=== PATIENT | male | born 2000 | race African-American/Black ===

== ENCOUNTER 2023-09-23 22:21 | Emergency (ER) | payer SELFPAY ==
--- NOTE | ~2023-09-23 | XR_ITS ---
EXAMINATION: XR chest 2V DATE: 09/24/2023 08:04 INDICATION: Palpitations. TECHNIQUE: Frontal and lateral views of the chest were obtained. COMPARISON: None. FINDINGS: There is no pneumonia, pleural effusion, or pneumothorax. The heart size is normal. IMPRESSION: 1. No acute cardiopulmonary disease. Reviewed, dictated and finalized at location E. [facility]
--- NOTE | 2023-09-23 22:26 | ECG_ITS ---
Measurements Intervals [place] Rate: 103 P: 44 WI: 187 QRS: 69 QRSD: 99 T: 19 QT: 326 QTc: 429 Interpretive Statements SINUS TACHYCARDIA ABNORMAL RHYTHM ECG NO PREVIOUS ECG AVAILABLE FOR COMPARISON Electronically Signed On 09-24-2023 13:19:01 PROJECT HIRE by Slim Elliott M.D.
[2023-09-24] VITALS (14 sets, daily range): BP systolic 107–160; BP diastolic 53–84; PULSE 57–110; RESP 13–25; TEMP 36.6; O2SAT 96–100
--- NOTE | 2023-09-24 06:23 | PC.NURSE ---
Once patient was back in room he denies any chest pain or chest palpitations.
[2023-09-24 08:11] LABS: Basophils Percent Auto 0.3 % (0.2-1.2); Eosinophils Absolute Auto 0.1 K/mm3 (0-0.3); Eosinophils Percent Auto 1.9 % (0-4.4); Hematocrit 44.8 % (42.0-52.0); Hemoglobin 13.9 g/dL (14.0-18.0); Immature Granulocyte Absolute 0.02 K/mm3 (0.00-0.031); Immature Granulocyte Percent A 0.3 % (0-0.5); Lymphocytes Absolute Auto 2.59 K/mm3 (0.9-3.2); Lymphocytes Percent Auto 37.2 % (18.3-44.2); Mean Corpuscular Hemoglobin 24.6 pg (26-34); Mean Corpuscular Volume 79.3 fl (80-100); Mean Platelet Volume 9.3 fl (7.4-10.4); Monocytes Absolute Auto 0.6 K/mm3 (0.1-0.6); Neutrophils Absolute Auto 3.7 K/mm3 (1.3-6.7); Neutrophils Percent Auto 52.3 % (45.5-73.1); Platelet Count Result 216 k/mm3 (150-375); Red Blood Count 5.65 M/mm3 (4.6-6.20); Red Cell Distribution Width 13.5 % (11.5-14.5)
[2023-09-24 08:19] LABS: Alanine Aminotransferase 65 U/L (6-50); Albumin Level 4.2 g/dL (3.5-5.1); Alkaline Phosphatase 79 U/L (38-126); Anion Gap 10 mmol/L (8-16); Aspartate Amino Transferase 32 U/L (17-59); Bilirubin,Total 0.4 mg/dL (0.2-1.3); Blood Urea Nitrogen 11 mg/dL (9-20); Calcium 9.4 mg/dL (8.4-10.2); Carbon Dioxide 28 mmol/L (22-30); Chloride 103 mmol/L (98-107); Estimated CRCL calculation 122 ml/min; Estimated Glomerular Filt Rate > 60; Glucose 103 mg/dL (65-110); Magnesium 1.9 mg/dL (1.6-2.3); Potassium 3.7 mmol/L (3.4-5.0); Sodium 141 mmol/L (137-145)
--- NOTE | 2023-09-24 08:40 | ED.ARRPALP ---
HPI - Arrhythmia/Palpitations General Chief Complaint: Arrhythmia/Palpitations Stated Complaint: palpitations Time Seen by Provider: 09/24/23 06:59 History of Present Illness HPI narrative: Patient is a 23-year-old male who presents ER with reports of heart palpitations. Began last night. [place] like his heart was fluttering around. No chest pain or chest pressure. No difficulty breathing. No dizziness or lightheadedness. Reports he is been having this intermittently over the last couple of years. It is not associated with any caffeine use or stimulant use. He does report he had some alcohol last night but that does not typically bring it on. No alleviating factors. Asymptomatic at this time. Related Data Allergies Allergy/AdvReac Type Severity Reaction Status Date / Time No Known Allergies Allergy Verified 09/24/23 06:20 Review of Systems Review of Systems: All systems reviewed & are unremarkable except as noted in HPI and below Constitutional: Constitutional: Denies chills, Denies fatigue and Denies fever(s) Cardiovascular: Cardiovascular: Denies chest pain, Denies rapid heart rate and Denies radiating jaw, neck or arm pain Comments: Palpitations Respiratory: Respiratory: Reports no additional respiratory complaints Musculoskeletal: Musculoskeletal: Reports no additional musculoskeletal complaints Neurologic: Reports system reviewed and no additional complaints, except as documented PMFSH Past Medical History Medical History (Updated 09/24/23 @ 08:46 by Yoni Curry MD) Healthy adult male Surgical History Surgical History (Updated 09/24/23 @ 08:42 by Yoni Curry MD) No pertinent past surgical history Exam Narrative: GENERAL: Well-appearing, well-nourished, and in no acute distress. HEAD: Normocephalic, atraumatic. ENT: Mucous membranes moist. CHEST: Clear to auscultation. No respiratory distress. HEART: Regular rate and rhythm. Normal peripheral pulses. ABDOMEN: Soft, nontender, nondistended. EXTREMITIES: Normal range of motion. No edema. SKIN: Warm, dry, no rash. NEURO: Alert and oriented x3. PSYCH: Normal mood and affect. Course Course Emergency Course: discussed need for follow-up with primary care physician. No electrolyte abnormalities. EKG and chest x-ray normal. Should symptoms persist he may require Holter monitor. Vital Signs Vital signs: Vital Signs Temperature 97.8 F 09/24/23 06:21 Pulse Rate 65 09/24/23 06:21 Respiratory Rate 22 H 09/24/23 06:21 Blood Pressure 160/81 H 09/24/23 06:21 Pulse Oximetry 99 09/24/23 06:21 Temperature 97.8 F 09/24/23 06:21 Pulse Rate 86 09/24/23 06:21 Respiratory Rate 22 H 09/24/23 06:21 Blood Pressure 160/81 H 09/24/23 06:21 Pulse Oximetry 99 09/24/23 06:21 MDM - Arrhythmia/Palpitations Lab Data 09/24/23 08:00 09/24/23 08:00 Labs: Lab Results 09/24/23 Range/Units 08:00 WBC 7.0 (4.5-10.0) K/mm3 RBC 5.65 (4.6-6.20) M/mm3 Hgb 13.9 L (14.0-18.0) g/dL Hct 44.8 (42.0-52.0) % MCV 79.3 L (80-100) fl MCH 24.6 L (26-34) pg MCHC 31.0 L (32-36) g/dl RDW 13.5 (11.5-14.5) % Plt Count 216 (150-375) k/mm3 MPV 9.3 (7.4-10.4) fl Immature Gran % (Auto) 0.3 (0-0.5) % Neut % (Auto) 52.3 (45.5-73.1) % Lymph % (Auto) 37.2 (18.3-44.2) % [place] % (Auto) 8.0 (2.6-8.5) % Eos % (Auto) 1.9 (0-4.4) % Baso % (Auto) 0.3 (0.2-1.2) % Lymph # (Auto) 2.59 (0.9-3.2) K/mm3 [place] # (Auto) 0.6 (0.1-0.6) K/mm3 Eos # (Auto) 0.1 (0-0.3) K/mm3 Baso # (Auto) 0.0 (0.0-0.1) K/mm3 Abs Immat Gran (auto) 0.02 (0.00-0.031) K/mm3 Absolute Neuts (auto) 3.7 (1.3-6.7) K/mm3 Absolute Nucleated RBC 0.0 (0.0-0.012) K/mm3 Nucleated RBC % 0.0 (0.0-0.2) % Sodium 141 (137-145) mmol/L Potassium 3.7 (3.4-5.0) mmol/L Chloride 103 (98-107) mmol/L Carbon Dioxide 28 (22-30) mmol/L Anion Gap 10 (8-16) mmol/L
== END 2023-09-24 09:08 | disposition home or self-care (01) ==
PROVIDERS: Emergency Provider Emergency Medicine
DX: R00.2 Palpitations (principal)
CPT/HCPCS: 36415; 71046; 80053; 83735; 85025; 93005; 99284